=== PATIENT | male | born 1995 | race Caucasian/White ===

== ENCOUNTER 2020-03-30 11:54 | Emergency (ER) | payer OTHER, BC, SELFPAY ==
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
[2020-03-30 12:26] VITALS: BP 118/85; PULSE 91; RESP 20; TEMP 37; O2SAT 99
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
== END 2020-03-30 14:12 | disposition home or self-care (01) ==
PROVIDERS: Emergency Provider Nurse Practitioner; PCP Family Medicine
DX: M54.2 Cervicalgia (principal); M54.12 Radiculopathy, cervical region; M79.641 Pain in right hand; F17.210 Nicotine dependence, cigarettes, uncomplicated; V49.40XA Driver injured in collision with unspecified motor vehicles in traffic accident, initial encounter
CPT/HCPCS: 70150; 72050; 73060; 73130; 99204; G0463